=== PATIENT | male | born 1965 | race African-American/Black ===

== ENCOUNTER 2018-12-27 06:55 | Emergency (ER) | payer MEDICARE, MEDICAID ==
[~2018-12-27] VITALS: Ht 175.3 cm; Wt 68.5 kg
--- NOTE | 2018-12-27 07:45 | NUR ---
patient came in to the ER c/o neck and shoulder pain s/p fall. On room air, breathing evenly and unlabored. Kept comfortable, will continue to monitor accordingly.
[2018-12-27] MEDS ORDERED: IBUPROFEN 600 MG TABLET PO ONE ×2 (08:17→08:30)
[2018-12-27 08:47] VITALS: BP 127/82
--- NOTE | 2018-12-27 08:49 | NUR ---
Patient discharged to home in stable condition. Written and verbal after care instructions given. Patient verbalizes understanding of instruction.
[2018-12-27] MEDS ORDERED: ACETAMINOPHEN ES 500 MG TABLET PO ONE (09:00)
== END 2018-12-27 08:48 | disposition home or self-care (01) ==
LOC: ER 06:59
DX: S01.81XA Laceration without foreign body of other part of head, initial encounter (principal); S13.4XXA Sprain of ligaments of cervical spine, initial encounter; M25.512 Pain in left shoulder; R51 Headache; G35 Multiple sclerosis; Z60.2 Problems related to living alone; W18.2XXA Fall in (into) shower or empty bathtub, initial encounter; Y93.89 Activity, other specified; Y92.89 Other specified places as the place of occurrence of the external cause; Y99.8 Other external cause status
CPT/HCPCS: 70450-TC; 72125-TC; 73030-TC

== ENCOUNTER 2023-01-15 22:09 | Emergency (ER) | payer MEDICARE, OTHER ==
[~2023-01-15] VITALS: Ht 175.3 cm; Wt 65.8 kg
[2023-01-15] MEDS ORDERED: ONDANSETRON HCL/PF 4 MG/2 ML VIAL ONE (22:48)
[2023-01-15] MEDS ORDERED: IV NS 0.9% 1,000 ML IV ONE (23:00)
[2023-01-15] MEDS ORDERED: ONDANSETRON HCL/PF - ER 4 MG/2 ML VIAL IV ONE (23:00)
[2023-01-15 23:15] LABS: BASOPHILS % (AUTO) 0.5 % (0.0-2.0); EOSINOPHILS % (AUTO) 0.7 % (0.0-6.0); HEMATOCRIT 47 % (39-51); HEMOGLOBIN 15.5 g/dL (13.5-17.5); LYMPHOCYTES # (AUTO) 1.2 K/uL (0.8-4.8); LYMPHOCYTES % (AUTO) 29.1 % (20.0-44.0); MEAN CORPUSCULAR HEMOGLOBIN 36 PG (26.0-33.0); MEAN CORPUSCULAR HGB CONC 33 g/dl (31.0-36.0); MEAN CORPUSCULAR VOLUME 107 fL (80-96); MONOCYTES # (AUTO) 0.4 K/uL (0.1-1.30); MONOCYTES % (AUTO) 8.6 % (2.0-12.0); NEUTROPHILS # (AUTO) 2.6 K/uL (1.8-8.9); NEUTROPHILS % (AUTO) 61.1 % (43.0-81.0); PLATELET COUNT (AUTO) 241 K/uL (150-450); RED BLOOD CELL COUNT(AUTO) 4.36 MIL/uL (4.5-6.0); RED CELL DISTRIBUTION WIDTH 12.6 % (11.5-15.0); WHITE BLOOD COUNT (AUTO) 4.3 K/uL (4.3-11.0)
[2023-01-15 23:33] LABS: ALBUMIN 3.8 g/dL (3.4-5.0); BILIRUBIN,DIRECT 0.2 mg/dL (0.0-0.2); BILIRUBIN,TOTAL 0.7 mg/dL (0.2-1.0); CREATININE 1.1 mg/dL (0.6-1.3); POTASSIUM 3.9 mmol/L (3.5-5.1); TOTAL PROTEIN, SERUM 7.7 g/dL (6.4-8.2)
[2023-01-16] MEDS ORDERED: ONDA4TAB11 PO (00:18)
[2023-01-16 00:58] LABS: APPEARANCE,URINE SLIGHTLY CLOUDY (CLEAR); BILIRUBIN,URINE NEGATIVE (NEGATIVE); BLOOD, URINE NEGATIVE Ery/uL (NEGATIVE); COLOR,URINE YELLOW (YELLOW); KETONES,URINE TRACE mg/dL (NEGATIVE); LEUKOCYTE ESTERASE ,URINE NEGATIVE (NEGATIVE); NITRITE, URINE NEGATIVE (NEGATIVE); PH,URINE 7.5 (5.0-8.0); PROTEIN,URINE TRACE mg/dl (NEGATIVE); UGLUCOSE NEGATIVE (NEGATIVE); UROBILINOGEN,URINE 0.2 EU/dL (0.2)
[2023-01-16 01:05] VITALS: BP 126/67; TEMP 98; O2SAT 97
== END 2023-01-16 01:06 | disposition home or self-care (01) ==
LOC: ER 22:09
DX: R11.2 Nausea with vomiting, unspecified (principal); Z88.8 Allergy status to other drugs, medicaments and biological substances; Z60.2 Problems related to living alone
CPT/HCPCS: 99285; 96374; 70450; 96361; 93005; 85025; 80048; 83690; 80076; 36415; 81003; J2405; J7030

== ENCOUNTER 2023-01-18 06:20 | Emergency (ER) | payer MEDICARE, OTHER ==
[~2023-01-18] VITALS: Ht 175.3 cm; Wt 71.7 kg
[~2023-01-18 06:20] MED LIST: ONDA4TAB11 PO
[2023-01-18] MEDS ORDERED: MORPHINE SULFATE INJ 2 MG/ML DISP.SYRIN IV ONE (07:00)
[2023-01-18] MEDS ORDERED: IV NS 0.9% 1,000 ML BAG IV ONE (07:00)
[2023-01-18 07:23] LABS: BASOPHILS % (AUTO) 0.5 % (0.0-2.0); EOSINOPHILS # (AUTO) 0.1 K/uL (0.0-0.7); EOSINOPHILS % (AUTO) 1.2 % (0.0-6.0); HEMATOCRIT 45 % (39-51); HEMOGLOBIN 15.4 g/dL (13.5-17.5); LYMPHOCYTES # (AUTO) 1.7 K/uL (0.8-4.8); LYMPHOCYTES % (AUTO) 30.5 % (20.0-44.0); MEAN CORPUSCULAR HEMOGLOBIN 36 PG (26.0-33.0); MEAN CORPUSCULAR HGB CONC 34 g/dl (31.0-36.0); MEAN CORPUSCULAR VOLUME 106 fL (80-96); MONOCYTES # (AUTO) 0.7 K/uL (0.1-1.30); MONOCYTES % (AUTO) 12.5 % (2.0-12.0); NEUTROPHILS # (AUTO) 3.1 K/uL (1.8-8.9); NEUTROPHILS % (AUTO) 55.3 % (43.0-81.0); PLATELET COUNT (AUTO) 239 K/uL (150-450); RED BLOOD CELL COUNT(AUTO) 4.28 MIL/uL (4.5-6.0); RED CELL DISTRIBUTION WIDTH 12.2 % (11.5-15.0); WHITE BLOOD COUNT (AUTO) 5.7 K/uL (4.3-11.0)
[2023-01-18 07:34] LABS: ALBUMIN 3.4 g/dL (3.4-5.0); BILIRUBIN,DIRECT 0.1 mg/dL (0.0-0.2); BILIRUBIN,TOTAL 0.5 mg/dL (0.2-1.0); CREATININE 1.2 mg/dL (0.6-1.3); POTASSIUM 4.2 mmol/L (3.5-5.1); TOTAL PROTEIN, SERUM 7.1 g/dL (6.4-8.2)
[2023-01-18] MEDS ORDERED: MORPHINE SULFATE INJ 2 MG/ML DISP.SYRIN ONE (07:36)
[2023-01-18 08:33] VITALS: BP 124/75; TEMP 97.8; O2SAT 97
== END 2023-01-18 08:33 | disposition home or self-care (01) ==
LOC: ER 06:21
DX: K59.00 Constipation, unspecified (principal); R10.30 Lower abdominal pain, unspecified; Z88.8 Allergy status to other drugs, medicaments and biological substances; Z60.2 Problems related to living alone
CPT/HCPCS: 99285; 74176; 96374; 96361; 85025; 80048; 83690; 80076; 36415; J7030; J2270